=== PATIENT | male | born 1985 | race Two or more races ===

== ENCOUNTER 2018-05-07 23:19 | Emergency (ER) | payer OTHER | END 2018-05-08 02:23 | disposition home or self-care (01) | LOC: FTE 23:19 | DX: R07.89 Other chest pain (principal) | CPT/HCPCS: 71045; 93005; 99284-25 ==

== ENCOUNTER 2018-09-03 16:20 | Emergency (ER) | payer OTHER | END 2018-09-03 19:20 | disposition left against medical advice (07) | LOC: FTE 16:20 | DX: R42 Dizziness and giddiness (principal) | CPT/HCPCS: 99283; Z7502 ==